=== PATIENT | male | born 1980 | race African-American/Black ===

== ENCOUNTER → 2021-06-28 | Outpatient (CLI) | payer OTHER ==
--- NOTE | 2021-06-29 22:20 | PF ---
[address] [address] PULMONARY FUNCTION REPORT Name: FREDDY MOLINA MANOJ Room: [facility] M.R.#: [id number] Admission: 06/28/21 Attend Phys: Tano Becerra Discharge: Date of : 82 Report #: [id number] THIS REPORT FOR: cc: FAM - No family physician/PCP FAM - No family physician/PCP Mark Bustillos MD ~ DATE OF VISIT: 06/28/2021 The FEV1/FVC ratio is mildly decreased to 69% with an FVC normal at 91%. The FEV1 is also normal at 80%. The SEZ99-20 is normal at 75%. After the administration of a bronchodilator, there is no significant increase in any of these values. The patient's post-bronchodilator FEV1 is 4.09 liters. Only a spirometry was performed. IMPRESSION: There is a mild reduction in FEV1/FVC ratio to 69%. This is suggestive of mild obstruction. The rest of the spirometry is normal. Clinical correlation is advised. <ELECTRONICALLY SIGNED> By: Mark Bustillos MD 06/29/21 2220 1550 [id number] Bustillos MD /nt
== END ==
LOC: M.PUL 13:00
PROVIDERS: ATTEND Chiropractor
DX: J06.9 Acute upper respiratory infection, unspecified (principal)